=== PATIENT | female | born 1970 | race Caucasian/White ===

== ENCOUNTER 2022-09-24 15:56 | Emergency (ER) | payer MEDICARE, MEDICAID, SELFPAY ==
[2022-09-24 16:05] VITALS: BP 135/78; PULSE 50; RESP 18; TEMP 36.4; O2SAT 99; BMI 36.3
[2022-09-24] MEDS: tetanus-dipt-pertussis 0.5 mL SDV IM (16:24)
--- NOTE | 2022-09-24 16:33 | PC.NURSE ---
DR. ALEMAN CLOSED LACERATION WITH 3-0 NYLON. WOUND IRRIGATED PRIOR TO CLOSING. LACERATION KIT, 500ML NS, AND ONE SUTURE PACK USED.
--- NOTE | 2022-09-24 16:49 | W.ED.WOUNDLC ---
HPI - Wound/Laceration General: Chief Complaint: Wound/Laceration Stated Complaint: LACERATION TO KNEE Time Seen by Provider: 09/24/22 16:08 Source: patient Mode of arrival: EMS History of Present Illness: 52-year-old female presents emergency room she slipped and fell on her stairs at home landed on a rock. Has a 4 inch laceration horizontally across the patella. She denies any other injuries. She was able to walk and bear weight on fall. She is unsure of her last tetanus shot. Onset (ago): minute(s) Extremity Location: Right: knee Place: home Patient tetanus UTD: No Context: accidental Associated symptoms: Denies chills, fever(s), nausea or vomiting Review of Systems Const: Denies: fever(s), chills, body aches, change in appetite, fatigue or malaise ENMT: Denies: throat pain, ear or mastoid pain, nasal discharge or nasal congestion Card: Denies: chest pain, edema, dyspnea on exertion or orthopnea Resp: Denies: dyspnea, productive cough or non-productive cough GI: Denies: abdominal pain, nausea, vomiting, hematemesis, coffee ground emesis, diarrhea, constipation, bloating, hematochezia or melena : Denies: flank pain, difficulty voiding, dysuria, urinary frequency or urinary urgency Musc: Denies: neck pain or back pain Skin/Breast: Denies: rash or pruritus PFS ED PFSH: Medical History No significant medical problems Surgical History Hx of total knee arthroplasty Social History (Updated 10/07/22 @ 15:44 by Sergey Law DO) Smoking and tobacco status: never smoked Alcohol intake: never Physical Exam Const: GENERAL APPEARANCE: cooperative and comfortable ORIENTATION/CONSCIOUSNESS: Yes awake, Yes oriented to person, Yes oriented to place and Yes oriented to time HENMT: COMMON NORMALS: normocephalic, atraumatic and hearing grossly normal bilaterally HEAD & SCALP: normocephalic and atraumatic Resp: COMMON NORMALS: normal respiratory effort, No retractions, No use of accessory muscles and clear to auscultation bilaterally AUSCULTATION: clear to auscultation bilaterally Cardio: COMMON NORMALS: regular rate, regular rhythm and No murmurs present (Cardio) RATE: regular rate RHYTHM: regular rhythm GI: COMMON NORMALS: Soft to palpation and No hepatosplenomegaly present AUSCULTATION: Yes normoactive bowel sounds PALPATION: Yes Soft to palpation, No Tenderness to palpation present (GI), No Guarding due to palpation present (GI) and Yes No hepatosplenomegaly present Extremity: COMMON NORMALS: normal to inspection, capillary refill normal, no clubbing, cyanosis or edema, no calf tenderness and no pedal edema Neuro: SENSORIUM/ORIENTATION: Yes oriented to person, Yes oriented to place and Yes oriented to time Skin: COMMON NORMALS: no rashes or lesions noted GENERAL SKIN EXAM: no rashes or lesions noted Procedures Laceration Laceration 1: Site: lower extremity Side (If applicable): right (Knee) Size (cm): 10 Description: linear Depth: simple, single layer Local Anesthetic: lidocaine 1% and with epi Amount of anesthesia used (mL): 7 Pre-repair: wound explored and irrigated extensively Skin layer closed with: nylon Size (cm): 4-0 Number of sutures: 4 Technique: running (Locking) Course Vital Signs: Vital signs: Vital Signs Temperature 97.5 F L 09/24/22 16:05 Pulse Rate 50 L 09/24/22 16:05 Respiratory Rate 18 09/24/22 16:05 Blood Pressure 135/78 09/24/22 16:05 Pulse Oximetry 99 09/24/22 16:05 Oxygen Delivery Me thod 09/24/22 16:05 MDM - Wound/Laceration Medical Decision Making Laceration closed the aid of local anesthetic good approximation cosmesis and hemostasis of the wound edges wound care instructions given discharge home follow-up for suture removal in 7 to 10 days with her primary care doctor. X-ray showed no evidence of fracture. Medical Records I reviewed the patient's medical records. Lab Data Radiology Impressions Knee X-Ray 09/24/22 16:58 IMPRESSION: Right total knee replacement. Discharge Plan Discharge Patient Disposition: Home Clinical Impression: Laceration Condition: Stable Prescriptions: New mupirocin 2 % ointment 1 applic topical DAILY Qty: 15 0RF Discharge Orders: Discharge ED (Routine); Ordered 09/24/22 Ordered By: Sergey Law Referrals: Cyndee Jeffers DO [Primary Care Provider] - Discharge Diet: Usual diet Discharge Activity: Increase activity as tolerated Patient Instructions: Opioid Safety, Pain Management Activity Restrictions/Additional Instructions: You were seen today for laceration. Sutures should be removed in 10 to 14 days your primary care doctor can remove the sutures. Start antibiotics 1 pill 3 times a day for 5 days. Having problems follow-up with primary care doctor. Coding Level of Care Code ED Steel Floor Pan Placing Supervisor for Chg Fwd Exam Detailed
--- NOTE | 2022-09-24 16:58 | XRR_ITS ---
PROCEDURE INFORMATION: Exam: XR Right Knee Exam date and time: 09/24/2022 5:01 PM Age: 52 years old Clinical indication: Pain; Knee; Right; Prior surgery; Surgery date: 6+ months; Additional info: Fall TECHNIQUE: Imaging protocol: Radiologic exam of the Right knee. Views: 3 views. COMPARISON: No relevant prior studies available. FINDINGS: Bones/joints: Right total knee replacement. Soft tissues: Normal. XR/XR knee RT 3V* [id number] IMPRESSION: Right total knee replacement.
== END 2022-09-24 20:09 | disposition home or self-care (01) ==
PROVIDERS: Emergency Provider Family Medicine; PCP Family Medicine
DX: S81.011A Laceration without foreign body, right knee, initial encounter (principal); W01.198A Fall on same level from slipping, tripping and stumbling with subsequent striking against other object, initial encounter; Z23 Encounter for immunization
CPT/HCPCS: 12004; 73562; 90471; 90715; 99283

== ENCOUNTER → 2023-03-10 12:35 | Outpatient (BNVA) | payer MEDICARE, OTHER, SELFPAY | PROVIDERS: PCP Family Medicine; Visit Provider Family Medicine | DX: K91.2 Postsurgical malabsorption, not elsewhere classified (principal); D64.9 Anemia, unspecified | CPT/HCPCS: 80053; 80061; 82306; 82607; 82728; 83540; 84134; 84425; 84443; 84630; 85025 ==

== ENCOUNTER → 2023-03-24 18:40 | Outpatient (BNVA) | payer OTHER, SELFPAY | PROVIDERS: PCP Family Medicine; Visit Provider Psychiatry & Neurology Neurology | DX: F33.1 Major depressive disorder, recurrent, moderate (principal) | CPT/HCPCS: 83036 ==

== ENCOUNTER 2023-04-23 15:55 | Emergency (ER) | payer MEDICARE, MEDICAID, SELFPAY ==
[2023-04-21 13:17] VITALS: BP 94/69; BMI 33.1
[2023-04-23 15:56] VITALS: BMI 33.0
[2023-04-23 16:02] VITALS: BP 158/120; PULSE 86; RESP 16; TEMP 37.1; O2SAT 99
--- NOTE | 2023-04-23 16:02 | CTR_ITS ---
PROCEDURE INFORMATION: Exam: CT Abdomen And Pelvis With Contrast Exam date and time: 04/23/2023 4:31 PM Age: 52 years old Clinical indication: Abdominal pain; Generalized; Prior surgery; Surgery date: 6+ months; Surgery type: Gb, gastric bypass, btl; Additional info: Abd pain TECHNIQUE: Imaging protocol: Computed tomography of the abdomen and pelvis with contrast. Radiation optimization: All CT scans at this facility use at least one of these dose optimization techniques: automated exposure control; mA and/or kV adjustment per patient size (includes targeted exams where dose is matched to clinical indication); or iterative reconstruction. Contrast material: OMNI 350; Contrast volume: 100 ml; Contrast route: INTRAVENOUS (IV); REPORTING DATA: Count of CT and Cardiac NM exams in prior 12 months: This patient has received 0 known CTs and 0 known cardiac nuclear medicine studies in the 12 months prior to the current study. COMPARISON: CT abdomen pelvis w con* [id number] 10/08/2018 7:22 PM RADIATION DOSE METRICS: Total DLP (mGy-cm): 938.92 FINDINGS: Liver: Normal. No mass. Gallbladder and bile ducts: Cholecystectomy. No ductal dilation. Pancreas: Normal. No ductal dilation. Spleen: Normal. No splenomegaly. Adrenal glands: Normal. No mass. Kidneys and ureters: Normal. No hydronephrosis. Stomach and bowel: Sequela of Rebekah-en-Y gastric bypass. No obstruction. No mucosal thickening. Appendix: No evidence of appendicitis. Intraperitoneal space: Unremarkable. No free air. No significant fluid collection. Vasculature: Unremarkable. No abdominal aortic aneurysm. Lymph nodes: Unremarkable. No enlarged lymph nodes. Urinary bladder: Unremarkable as visualized. Reproductive: Unremarkable as visualized. Bones/joints: No acute fracture. Soft tissues: Unremarkable. CT/CT abdomen pelvis w con* [id number] IMPRESSION: No acute findings.
[2023-04-23 16:23] LABS: Basophils # 0.1 10^3/uL (0.0-0.1); Basophils % 1.5 %; Eosinophils # 0.1 10^3/uL (0.0-0.8); Eosinophils % 1.5 %; Hematocrit 42.4 % (37.0-47.0); Hemoglobin 12.7 g/dL (11.5-15.3); Lymphocytes # 1.4 10^3/uL (0.8-4.8); Lymphocytes % 33.3 %; Mean Corpuscular Hemoglobin 25.9 pg (28.0-34.0); Mean Corpuscular Volume 86.5 fl (81-99); Mean Platelet Volume 10.7 fL (7.4-10.4); Monocytes # 0.3 10^3/uL (0.2-0.9); Monocytes % 7.3 %; Neutrophils % 56.2 %; Nucleated Red Blood Cells % 0 %; Platelet Count 162 10^3/cmm (130-400); Red Cell Distribution Width 24.1 % (12.1-15.1); White Blood Count 4.1 10^3/uL (4.0-10.0)
--- NOTE | 2023-04-23 16:24 | W.ED.ABDPA2 ---
HPI - Abdominal Pain General: Chief Complaint: Abdominal Pain Stated Complaint: Abd pain Time Seen by Provider: 04/23/23 15:57 Source: patient and EMS Mode of arrival: EMS Limitations: no limitations History of Present Illness: 52-year-old female who states that she had nausea vomiting over the last 3 days. States not been able to tolerate any of her meds she had some slight dizziness she had abdominal cramping she denies any fevers EMS states she was bradycardic into the 50s I saw her EKG was sinus bradycardia she had no hypotensive but they did give her 1 mg of atropine. Associated Symptoms: Reports nausea and vomiting; Denies chills, diarrhea and fever(s) Review of Systems Const: Denies: fever(s), chills, body aches or change in appetite ENMT: Denies: throat pain or dental pain Card: Denies: chest pain Resp: Denies: dyspnea GI: Reports: abdominal pain, nausea and vomiting; Denies: diarrhea Musc: Denies: neck pain or back pain Skin/Breast: Denies: rash Neuro: Reports: dizziness; Denies: headache(s) PFSH ED PFSH: Medical History Chronic headaches Chronic pain Chronic prescription opiate use Generalized anxiety disorder History of blood transfusion History of DVT (deep vein thrombosis) provoked, post-surgical Postoperative malabsorption Psychiatric care PTSD (post-traumatic stress disorder) Surgical History History of abdominoplasty History of ankle surgery left, repair of tendon History of bilateral tubal ligation History of cholecystectomy History of laparoscopy History of Rebekah-en-Y gastric bypass History of total right knee replacement Family History Mother Cancer lung (smoker) Social History Smoking and tobacco status: never smoked Alcohol intake: never Substance/Drug Use: never Adopted: No Caregiver/support person: No Lives independently: Yes Household members: none Housing: Apartment Marital status: Number of children: 3 Number of grandchildren: 4 Highest education level completed: Some College, No Degree service: No Current occupational status: disabled Current occupational exposures/hazards: No Pets and animals: Yes Pets & animals: dog(s) Pets & animal details: widdle bit (akosua) Leisure activites: other Leisure activities details: play with dog, watch tv, knit and croucet Sexually active: No Do you think of yourself as: Straight/Heterosexual Current gender identity: Female Jennifer/Voodoo: Pentecostal Special jennifer needs: No Agree to transfusion: Yes Financial difficulty paying for basics: Not Very Hard Physical Exam Const: COMMON NORMALS: no acute distress, patient oriented x3 and healthy appearing HENMT: COMMON NORMALS: normocephalic and atraumatic HEAD & SCALP: normocephalic and atraumatic Eye: COMMON NORMALS: Equal, round and reactive pupils present and EOMs intact bilaterally PUPIL: Yes Equal, round and reactive pupils present Neck/C-Spine: COMMON NORMALS: full ROM and supple Chest: COMMONS NORMALS: normal inspection of the chest and normal palpation of entire chest wall Resp: COMMON NORMALS: normal respiratory effort, No retractions, No use of accessory muscles and clear to auscultation bilaterally AUSCULTATION: clear to auscultation bilaterally Cardio: COMMON NORMALS: regular rate, regular rhythm and No murmurs present (Cardio) RATE: regular rate RHYTHM: regular rhythm GI: COMMON NORMALS: Normal to inspection, nondistended, normoactive bowel sounds present, Soft to palpation, non-tender and no masses PALPATION: Yes Soft to palpation Extremity: COMMON NORMALS: normal to inspection and full ROM Neuro: COMMON NORMALS: patient oriented x3, moves all extremities and no focal motor deficits Psych: COMMON NORMALS: mental status grossly normal, Normal thought process present and cooperative THOUGHT PROCESS: Normal thought process present Skin: COMMON NORMALS: no rashes or lesions noted and no wounds GENERAL SKIN EXAM: no rashes or lesions noted Course Vital Signs: Vital signs: Vital Signs Temperature 98.8 F 04/23/23 16:02 Pulse Rate 68 04/23/23 18:20 Respiratory Rate 16 04/23/23 18:20 Blood Pressure 142/97 04/23/23 18:20 Pulse Oximetry 97 04/23/23 18:20 Oxygen Delivery Me thod Room Air 04/23/23 17:07 MDM - Abdominal Pain Medical Decision Making Patient presents here with abdominal pain and vomiting she feels much improved here she has been able to tolerate p.o. here CT scan blood work here all normal she is stable for discharge back home. Medical Records I reviewed the patient's medical records. Lab Data I reviewed the patient's lab results. 04/23/23 16:15 04/23/23 16:15 Labs/Radiology: Radiology Impressions Abdomen/Pelvis CT 04/23/23 16:02 IMPRESSION: No acute findings. Laboratory Results WBC 4.1 10^3/uL (4.0-10.0) 04/23/23 16:15 RBC 4.90 10^6/uL (4.1-5.3) 04/23/23 16:15 Hgb 12.7 g/dL (11.5-15.3) 04/23/23 16:15 Hct 42.4 % (37.0-47.0) 04/23/23 16:15 MCV 86.5 fl (81-99) 04/23/23 16:15 MCH 25.9 pg (28.0-34.0) L 04/23/23 16:15 MCHC 30.0 g/dL (30.0-36.0) 04/23/23 16:15 RDW 24.1 % (12.1-15.1) H 04/23/23 16:15 Plt Count 162 10^3/cmm (130-400) 04/23/23 16:15 MPV 10.7 fL (7.4-10.4) H 04/23/23 16:15 Neut % (Auto) 56.2 % 04/23/23 16:15 Lymph % (Auto) 33.3 % 04/23/23 16:15 Hemphill % (Auto) 7.3 % 04/23/23 16:15 Eos % (Auto) 1.5 % 04/23/23 16:15 Baso % (Auto) 1.5 % 04/23/23 16:15 Neut # (Auto) 2.30 10^3/uL (1.8-7.7) 04/23/23 16:15 Lymph # (Auto) 1.4 10^3/uL (0.8-4.8) 04/23/23 16:15 [place]ill # (Auto) 0.3 10^3/uL (0.2-0.9) 04/23/23 16:15 Eos # (Auto) 0.1 10^3/uL (0.0-0.8) 04/23/23 16:15 Baso # (Auto) 0.1 10^3/uL (0.0-0.1) 04/23/23 16:15 Nucleated RBC % (auto) 0 % 04/23/23 16:15 Nucleated RBCs # 0.0 /100WBC 04/23/23 16:15 Sodium 142 mmol/L (136-145) 04/23/23 16:15 Potassium 3.7 mmol/L (3.5-5.1) 04/23/23 16:15 Chloride 109 mmol/L (98-107) H 04/23/23 16:15 Carbon Dioxide 23 mmol/L (22-29) 04/23/23 16:15 Anion Gap 13.7 (5-19) 04/23/23 16:15 BUN 10 mg/dL (6-20) 04/23/23 16:15 Creatinine 0.6 mg/dL (0.5-0.9) 04/23/23 16:15 GFR Calculation 105.0 mL/min (90-130) 04/23/23 16:15 Glucose 93 mg/dL (65-115) 04/23/23 16:15 Calculated Osmolality 293 mOsm/kg (285-295) 04/23/23 16:15 Calcium 8.6 mg/dL (8.5-10.5) 04/23/23 16:15 Total Bilirubin 0.8 mg/dL (0.15-1.2) 04/23/23 16:15 AST 23 U/L (0-32) 04/23/23 16:15 ALT 24 U/L (0-33) 04/23/23 16:15 Alkaline Phosphatase 78 U/L (35-105) 04/23/23 16:15 Troponin T Baseline 6 ng/L (0-10) 04/23/23 16:15 Total Protein 5.9 g/dL (6.6-8.7) L 04/23/23 16:15 Albumin 3.5 g/dL (3.5-5.2) 04/23/23 16:15 Globulin 2.4 g/dL (1.3-4.6) 04/23/23 16:15 Lipase 53 U/L (13-60) 04/23/23 16:15 Discharge Plan Discharge Patient Disposition: Home Clinical Impression: Abdominal pain, Vomiting Condition: Stable Prescriptions: New ondansetron 4 mg tablet,disintegrating 4 mg PO Q6H PRN (Reason: nausea and vomiting) Qty: 14 0RF No Action esomeprazole magnesium 40 mg capsule,delayed release(DR/EC) 40 mg PO DAILY Qty: 90 3RF buspirone 15 mg tablet 15 mg PO TID Qty: 270 0RF venlafaxine 75 mg capsule,extended release 24hr 75 mg PO DAILY Qty: 90 0RF trazodone 50 mg tablet 50 mg PO DAILY Qty: 90 0RF clonidine HCl 0.2 mg tablet 0.2 mg PO .HS Qty: 90 0RF clonidine HCl 0.1 mg tablet 0.1 mg PO DAILY Qty: 90 0RF zonisamide 100 mg capsule 100 mg PO DAILY topiramate 200 mg tablet 200 mg PO BID levetiracetam 750 mg tablet 750 mg PO BID aspirin 81 mg tablet,delayed release (DR/EC) 81 mg PO DAILY tizanidine 2 mg tablet 2 mg PO Q8H PRN Ubrelvy 50 mg tablet PO hydromorphone 2 mg tablet 2 mg PO Q12H ferrous sulfate 325 mg (65 mg iron) tablet 325 mg PO BID Qty: 180 0RF epinephrine 0.3 mg/0.3 mL auto-injector 0.3 mg IM Q4H PRN (Reason: anaphylaxis) Qty: 2 0RF mupirocin 2 % ointment 1 applic topical DAILY Qty: 15 0RF Discharge Orders: Discharge ED (Routine); Ordered 04/23/23 Ordered By: Buster Ramsey Referrals: Paulette Garrison MD [Primary Care Provider] - Discharge Diet: Advance as tolerated Discharge Activity: Resume usual activity Patient Instructions: Acute Nausea and Vomiting (ED), Abdominal Pain (ED) Coding Level of Care Code ED Director Engineering for Jorge Bansal
[2023-04-23] MEDS: meclizine 25 mg tablet PO (16:53)
[2023-04-23 17:00] LABS: Alanine Aminotransferase 24 U/L (0-33); Albumin Level 3.5 g/dL (3.5-5.2); Alkaline Phosphatase 78 U/L (35-105); Aspartate Amino Transferase 23 U/L (0-32); Blood Urea Nitrogen 10 mg/dL (6-20); Calcium 8.6 mg/dL (8.5-10.5); Carbon Dioxide 23 mmol/L (22-29); Chloride 109 mmol/L (98-107); Globulin 2.4 g/dL (1.3-4.6); Glucose 93 mg/dL (65-115); Lipase 53 U/L (13-60); Osmolality Calculated 293 mOsm/kg (285-295); Sodium 142 mmol/L (136-145); Total Bilirubin 0.8 mg/dL (0.15-1.2); Total Protein 5.9 g/dL (6.6-8.7); Troponin(5th) Baseline 6 ng/L (0-10)
[2023-04-23 17:01] VITALS: RESP 17; O2SAT 96
[2023-04-23] MEDS: morphine 4 mg/mL SDV 1 mL IVP (17:01)
[2023-04-23 17:06] LABS: Anion Gap 13.7 (5-19); Potassium 3.7 mmol/L (3.5-5.1)
[2023-04-23 17:07] VITALS: BP 130/95; PULSE 65; RESP 17; O2SAT 95
--- NOTE | 2023-04-23 17:22 | ECG_ITS ---
[facility] Test Date: 2023-04-23 Pat Name: Flaquita Carr Department: Room: Gender: Female Freelance Director: : 1970 Requested By: Buster Ramsey Order Number: [id number] Crow MD: Princess Mcleod M.D. Measurements Intervals [place] Rate: 57 P: -4 [place]: 132 QRS: -10 QRSD: 98 T: 30 QT: 399 QTc: 389 Interpretive Statements SINUS BRADYCARDIA POSSIBLE ANTERIOR MYOCARDIAL INFARCTION , PROBABLY OLD [30 ms Q WAVE IN V3/V4, OR R < 0.2 mV IN V4] Compared to ECG 05/21/2019 20:58:20 Myocardial infarct finding now present Electronically Signed On 04-23-2023 18:45:34 CDT by Princess Mcleod M.D. [id number]
[2023-04-23 18:20] VITALS: BP 142/97; PULSE 68; RESP 16; O2SAT 97
== END 2023-04-23 19:43 | disposition home or self-care (01) ==
PROVIDERS: Emergency Provider Emergency Medicine; PCP Family Medicine
DX: R10.9 Unspecified abdominal pain (principal); R11.10 Vomiting, unspecified
CPT/HCPCS: 74177; 80053; 83690; 84484; 85025; 93005; 96374; 99285; J2270; J8597; Q9967

== ENCOUNTER 2023-08-12 22:00 | Emergency (ER) | payer MEDICARE, MEDICAID, SELFPAY ==
[2023-04-21 13:17] VITALS: BP 94/69; BMI 33.1
[2023-08-12 22:00] VITALS: BMI 33.0
--- NOTE | 2023-08-12 22:01 | ED_ITS ---
HPI - Skin/Abscess/Foreign Bdy General: Chief complaint: Skin/Abscess/Foreign Body Stated complaint: spider bite Time Seen by Provider: 08/12/23 22:01 History of Present Illness: 53-year-old female comes in today for co ncerns of possible spider bite. Patient felt a sting to her left hip area and reported the found a spider that was brown in color. Patient said that she has had a reaction to spider bites before. Patient appears nontoxic. Patient appears in no acute distress. Patient has a history of traumatic brain injury, and hypertension, chronic opioid use, and mental health disorder. Associated symptoms: Deny fever(s), nausea or vomiting Review of Systems General: Reports: 10 or more systems reviewed and unremarkable except in HPI and below Const: Denies: fever(s) Card: Denies: chest pain Resp: Denies: dyspnea GI: Denies: nausea, vomiting, diarrhea or constipation : Denies: difficulty voiding Musc: Denies: neck pain or back pain Skin/Breast: Reports: new lesions [facility] ED PFSH: Medical History Chronic headaches Chronic pain Chronic prescription opiate use Generalized anxiety disorder History of blood transfusion History of DVT (deep vein thrombosis) provoked, post-surgical Postoperative malabsorption Psychiatric care PTSD (post-traumatic stress disorder) Surgical History History of abdominoplasty History of ankle surgery left, repair of tendon History of bilateral tubal ligation History of cholecystectomy History of laparoscopy History of Rebekah-en-Y gastric bypass History of total right knee replacement Family History Mother Cancer lung (smoker) Social History Smoking and tobacco/nicotine status: never used tobacco/nicotine Alcohol intake: never Substance/Drug Use: never Adopted: No Caregiver/support person: No Lives independently: Yes Household members: none Housing: Apartment Marital status: Number of children: 3 Number of grandchildren: 4 Highest education level completed: Some College, No Degree service: No Current occupational status: disabled Current occupational exposures/hazards: No Pets and animals: Yes Pets & animals: dog(s) Pets & animal details: widdle bit (akosua) Leisure activites: other Leisure activities details: play with dog, watch tv, knit and croucet Sexually active: No Do you think of yourself as: Straight/Heterosexual Current gender identity: Female Jennifer/Latter Day: Christianity Special jennifer needs: No Agree to transfusion: Yes Physical Exam Const: COMMON NORMALS: alert HENMT: COMMON NORMALS: normocephalic HEAD & SCALP: normocephalic Neck/C-Spine: COMMON NORMALS: full ROM Resp: COMMON NORMALS: normal respiratory effort and clear to auscultation bilaterally AUSCULTATION: clear to auscultation bilaterally Cardio: COMMON NORMALS: regular rate and regular rhythm RATE: regular rate RHYTHM: regular rhythm GI: COMMON NORMALS: Soft to palpation and non-tender PALPATION: Yes Soft to palpation Back/Pelvis: COMMON NORMALS: thoracic and lumbar spine normal to inspection Extremity: COMMON NORMALS: normal to inspection Neuro: SENSORIUM/ORIENTATION: Yes alert Skin: COMMON NORMALS: turgor normal GENERAL SKIN EXAM: turgor normal LES IONS: no lesions Course Vital Signs: Vital signs: Vital Signs Temperature 98.3 F 08/12/23 22:04 Pulse Rate 53 L 08/12/23 22:04 Respiratory Rate 16 08/12/23 22:04 Blood Pressure 177/92 08/12/23 22:04 Pulse Oximetry 98 08/12/23 22:04 MDM - Skin/Abscess/Foreign Bdy Medicial Decision Making 53-year-old female comes in today for complaints of spider bite to the left thigh. On exam no visible markings or injuries are noted. Patient appears nontoxic. Patient appears in no acute distress. Lungs are clear to auscultation. Heart rates regular. Vital signs are normal except for some mild bradycardia in the 50s, and slightly elevated blood pressure. Differential diagnosis includes neuropathy, anxiety, insect bite. I believe the patient had a sensation that she mistook as a spider bite but no visible injury is noted. Patient was monitored for deterioration and no abnormalities were noted. Patient was discharged home for follow-up with primary care for recheck of area or return to ER for new concerns. Patient was stable and discharged home. No radiology studies performed this visit Discharge Plan Discharge Patient Disposition: Home Clinical Impression: Insect bite Qualifiers: Encounter type: initial encounter Site of insect bite: thigh Laterality: left Qualified Code(s): S70.362A - Insect bite (nonvenomous), left thigh, initial encounter Condition: Stable Prescriptions: No Action esomeprazole magnesium 40 mg capsule,delayed release(DR/EC) 40 mg PO DAILY Qty: 90 3RF propranolol 20 mg tablet 20 mg PO BID PRN (Reason: anxiety) Qty: 180 0RF buspirone 15 mg tablet 15 mg PO TID Qty: 270 0RF clonidine HCl 0.2 mg tablet 0.2 mg PO .HS Qty: 90 0RF clonidine HCl 0.1 mg tablet 0.1 mg PO DAILY Qty: 90 0RF trazodone 50 mg tablet 50 mg PO DAILY Qty: 90 0RF venlafaxine 75 mg capsule,extended release 24hr 75 mg PO DAILY Qty: 90 0RF zonisamide 100 mg capsule 100 mg PO DAILY topiramate 200 mg tablet 200 mg PO BID levetiracetam 750 mg tablet 750 mg PO BID aspirin 81 mg tablet,delayed release (DR/EC) 81 mg PO DAILY tizanidine 2 mg tablet 2 mg PO Q8H PRN Ubrelvy 50 mg tablet PO hydromorphone 2 mg tablet 2 mg PO Q12H ondansetron 4 mg tablet,disintegrating 4 mg PO Q6H PRN (Reason: nausea and vomiting) Qty: 14 0RF epinephrine 0.3 mg/0.3 mL auto-injector 0.3 mg IM Q4H PRN (Reason: anaphylaxis) Qty: 2 0RF ferrous sulfate [FeroSul] 325 mg (65 mg iron) tablet See Rx Instructions .ROUTE .COMPLEX Qty: 180 0RF Dose Instruction: TAKE 1 TABLET TWICE DAILY Rx Instructions: TAKE 1 TABLET TWICE DAILY Discharge Orders: Discharge ED (Routine); Ordered 08/12/23 Ordered By: Yordan Lee Referrals: Paulette Garrison MD [Primary Care Provider] - Discharge Diet: Usual diet Discharge Activity: Increase activity as tolerated Patient Instructions: Insect Bite or Sting (ED) Activity Restrictions/Additional Instructions: Monitor site for signs of infection. This includes fever, increasing redness and thickening of the skin, increasing pain. Follow-up with primary care. Return to ED for new concerns. Coding Level of Care Code ED Chemistry Manager for Jorge Bansal
[2023-08-12 22:04] VITALS: BP 177/92; PULSE 53; RESP 16; TEMP 36.8; O2SAT 98
[2023-08-12 23:00] VITALS: BP 107/63; PULSE 55; O2SAT 98
== END 2023-08-12 23:03 | disposition home or self-care (01) ==
PROVIDERS: Emergency Provider Nurse Practitioner Family; PCP Family Medicine
DX: S70.362A Insect bite (nonvenomous), left thigh, initial encounter (principal); W57.XXXA Bitten or stung by nonvenomous insect and other nonvenomous arthropods, initial encounter; Z79.82 Long term (current) use of aspirin
CPT/HCPCS: 99281

== ENCOUNTER → 2023-08-23 07:53 | Outpatient (BNVA) | payer MEDICARE, MEDICAID, SELFPAY ==
[2023-04-21 13:17] VITALS: BP 94/69; BMI 33.1
== END ==
PROVIDERS: PCP Family Medicine; Referring Provider Family Medicine; Visit Provider Surgery
DX: R13.10 Dysphagia, unspecified (principal)
CPT/HCPCS: 99204

== ENCOUNTER → 2023-11-15 11:39 | Outpatient (BNVA) | payer MEDICARE, MEDICAID, SELFPAY ==
[2023-04-21 13:17] VITALS: BP 94/69; BMI 33.1
== END ==
PROVIDERS: PCP Family Medicine; Visit Provider Emergency Medicine
DX: N39.0 Urinary tract infection, site not specified (principal)
CPT/HCPCS: 81000; 87077; 87086; 87184

== ENCOUNTER → 2023-11-22 11:43 | Outpatient (BNVA) | payer MEDICARE, MEDICAID, SELFPAY ==
[2023-04-21 13:17] VITALS: BP 94/69; BMI 33.1
== END ==
PROVIDERS: PCP Family Medicine; Visit Provider Nurse Practitioner
DX: N39.0 Urinary tract infection, site not specified (principal)
CPT/HCPCS: 81000; 87086

== ENCOUNTER 2023-12-11 12:57 | Emergency (ER) | payer MEDICARE, MEDICAID, SELFPAY ==
[2023-04-21 13:17] VITALS: BP 94/69; BMI 33.1
[2023-12-11 13:06] VITALS: BP 114/82; PULSE 66; RESP 17; TEMP 36.9; O2SAT 96; BMI 33.7
--- NOTE | 2023-12-11 14:22 | XRR_ITS ---
PROCEDURE INFORMATION: Exam: XR Chest Exam date and time: 12/11/2023 3:05 PM Age: 53 years old Clinical indication: Cough and fever and shortness of breath; Patient HX: SOB; Fever; Headache; Cough TECHNIQUE: Imaging protocol: Radiologic exam of the chest. Views: 1 view. COMPARISON: CR XR chest 1V [id number] 04/17/2019 2:37 PM FINDINGS: Lungs: Unremarkable. No consolidation. Pleural spaces: Unremarkable. No pleural effusion. No pneumothorax. Heart/Mediastinum: Unremarkable. No cardiomegaly. Bones/joints: Unremarkable. XR/XR chest 1V portable [id number] IMPRESSION: No acute findings.
--- NOTE | 2023-12-11 14:28 | ED_ITS ---
HPI - URI/Sore Throat 2 General: Chief Complaint: Upper Respiratory Infection Stated Complaint: HEADACHE Time Seen by Provider: 12/11/23 14:11 History of Present Illness: The patient reports feeling unwell since the removal of their last seven upper teeth a week ago , noting that the roots extended into the sinus cavity. Following this procedure, the patient developed a cold at the beginning of the week, experiencing significant sinus pressure, particularly in the cheek area, and has had a fever reaching up to 103 degrees Fahrenheit. The patient has been managing the fever with alternating doses of ibuprofen and Tylenol. Despite efforts to prevent it, mucus drains down the throat during sleep, leading to coughing. The patient expresses concern about managing their medication schedule due to being on numerous medications and fears having a seizure because of a pre-existing brain tumor and traumatic brain injury (TBI). Additionally, the patient mentions a lack of appetite and hydration, experiencing cold chills, and confirms the persistence of fever symptoms for approximately five days. The patient also shares a reluctance to receive the flu vaccine, attributing past instances of flu to the vaccination. Review of Systems 2 General: Reports: 10 or more systems reviewed and unremarkable except in HPI and below PFSH ED 2 PFSH: Medical History Chronic prescription opiate use Chronic pain Chronic headaches Postoperative malabsorption History of DVT (deep vein thrombosis) provoked, post-surgical History of blood transfusion Generalized anxiety disorder PTSD (post-traumatic stress disorder) Psychiatric care Surgical History History of abdominoplasty History of laparoscopy History of bilateral tubal ligation History of ankle surgery left, repair of tendon History of Rebekah-en-Y gastric bypass History of cholecystectomy History of total right knee replacement Family History Mother Cancer lung (smoker) Social History Smoking and tobacco/nicotine status: never used tobacco/nicotine Alcohol intake: never Substance/Drug Use: never Adopted: No Caregiver/support person: No Lives independently: Yes Household members: none Housing: Apartment Marital status: Number of children: 3 Number of grandchildren: 4 Highest education level completed: Some College, No Degree service: No Current occupational status: disabled Current occupational exposures/hazards: No Pets and animals: Yes Pets & animals: dog(s) Pets & animal details: widdle bit (akosua) Leisure activites: other Leisure activities details: play with dog, watch tv, knit and croucet Sexually active: No Do you think of yourself as: Straight/Heterosexual Current gender identity: Female Jennifer/Pentecostal: Orthodox Special jennifer needs: No Agree to transfusion: Yes Physical Exam 2 Const: COMMON NORMALS: no acute distress, patient oriented x3, healthy appearing, alert and well nourished HENMT: COMMON NORMALS: normocephalic HEAD & SCALP: normocephalic Eye: COMMON NORMALS: EOMs intact bilaterally Neck/C-Spine: COMMON NORMALS: full ROM and supple Resp: COMMON NORMALS: normal respiratory effort, No retractions and clear to auscultation bilaterally AUSCULTATION: clear to auscultation bilaterally Cardio: COMMON NORMALS: regular rate, regular rhythm, No gallops present (Cardio) and No murmurs present (Cardio) RATE: regular rate RHYTHM: r egular rhythm GI: COMMON NORMALS: Soft to palpation and non-tender PALPATION: Yes Soft to palpation Extremity: GENERAL: Yes normal exam except as noted Neuro: COMMON NORMALS: patient oriented x3 SENSORIUM/ORIENTATION: Yes alert Skin: COMMON NORMALS: no rashes or lesions noted GENERAL SKIN EXAM: no rashes or lesions noted Course 2 Vital Signs: Vital signs: Vital Signs Temperature 98.4 F 12/11/23 13:06 Pulse Rate 66 12/11/23 13:06 Respiratory Rate 17 12/11/23 13:06 Blood Pressure 114/82 12/11/23 13:06 Pulse Oximetry 96 12/11/23 13:06 Oxygen Delivery Me thod Room Air 12/11/23 13:06 MDM - URI/Sore Throat Medical Decision Making 53-year-old female presents emergency department for evaluation of sinus congestion and head pain for the past 4 days. Patient's laboratory evaluation is globally normal. Patient likely has acute bacterial sinusitis. She does have fairly significant leukopenia with neutropenia. Encourage patient to follow-up with her primary care physician to further workup this finding. Patient discharged home in improved condition. Return precautions discussed. Differential Diagnosis Likely upper respiratory infection, sinusitis and viral infection Lab Data 12/11/23 14:29 12/11/23 14:29 Radiology Impressions Chest X-Ray 12/11/23 14: IMPRESSION: No acute findings. Laboratory Results WBC 2.55 10^3/uL (3.29-11.43) L 12/11/23 14:29 RBC 5.10 10^6/uL (3.85-5.65) 12/11/23 14:29 Hgb 15.20 g/dL (11.27-16.99) 12/11/23 14:29 Hct 48.6 % (36-47) H 12/11/23 14:29 MCV 95.3 fl (85-98) 12/11/23 14:29 MCH 29.8 pg (27-33) 12/11/23 14:29 MCHC 31.3 g/dL (30-55) 12/11/23 14:29 RDW 13.3 % (12.1-15.1) 12/11/23 14:29 Plt Count 154 10^3/cmm (157-399) L 12/11/23 14:29 MPV 10.4 fL (7.4-10.4) 12/11/23 14:29 Neut % (Auto) 56.0 % 12/11/23 14:29 Lymph % (Auto) 31.0 % 12/11/23 14:29 [place] % (Auto) 10.2 % 12/11/23 14:29 Eos % (Auto) 1.2 % 12/11/23 14:29 Baso % (Auto) 1.2 % 12/11/23 14:29 Neut # (Auto) 1.43 10^3/uL (1.8-7.7) L 12/11/23 14:29 Lymph # (Auto) 0.8 10^3/uL (0.8-4.8) 12/11/23 14:29 [place] # (Auto) 0.3 10^3/uL (0.2-0.9) 12/11/23 14:29 Eos # (Auto) 0.0 10^3/uL (0.0-0.8) 12/11/23 14:29 Baso # (Auto) 0.0 10^3/uL (0.0-0.1) 12/11/23 14:29 Nucleated RBC % (auto) 0 % 12/11/23 14:29 Nucleated RBCs # 0.0 /100WBC 12/11/23 14:29 Sodium 142 mmol/L (136-145) 12/11/23 14:29 Potassium 3.3 mmol/L (3.5-5.1) L 12/11/23 14:29 Chloride 112 mmol/L (98-107) H 12/11/23 14:29 Carbon Dioxide 19 mmol/L (22-29) L 12/11/23 14:29 Anion Gap 14.3 (5-19) 12/11/23 14:29 BUN 5 mg/dL (6-20) L 12/11/23 14:29 Creatinine 0.7 mg/dL (0.5-0.9) 12/11/23 14:29 GFR Calculation 87.5 mL/min (90-130) L 12/11/23 14:29 Glucose 105 mg/dL (65-115) 12/11/23 14:29 Calculated Osmolality 292 mOsm/kg (285-295) 12/11/23 14:29 Lactic Acid 1.1 mmol/L (0.5-2.2) 12/11/23 14:29 Calcium 8.5 mg/dL (8.5-10.5) 12/11/23 14:29 Total Bilirubin 0.9 mg/dL (0.15-1.2) 12/11/23 14:29 AST 27 U/L (0-32) 12/11/23 14:29 ALT 20 U/L (0-33) 12/11/23 14:29 Alkaline Phosphatase 91 U/L (35-105) 12/11/23 14:29 Total Protein 6.5 g/dL (6.6-8.7) L 12/11/23 14:29 Albumin 3.6 g/dL (3.5-5.2) 12/11/23 14:29 Globulin 2.9 g/dL (1.3-4.6) 12/11/23 14:29 Influenza Type A Ag negative (Negative) 12/11/23 14:44 Influenza Type B Ag negative (Negative) 12/11/23 14:44 SARS-CoV-2 Ag (Rapid) negative (Negative) 12/11/23 14:44 All radiology interpretation(s) finalized by discharge Discharge Plan Discharge Patient Disposition: Home Clinical Impression: Sinusitis Qualifiers: Sinusitis location: maxillary Chronicity: acute Recurrence: non-recurrent Q ualified Code(s): J01.00 - Acute maxillary sinusitis, unspecified Leukopenia Qualifiers: Leukopenia type: unspecified Qualified Code(s): D72.819 - Decreased white blood cell count, unspecified Condition: Stable Prescriptions: New amoxicillin 875 mg tablet 875 mg PO BID Qty: 20 0RF No Action esomeprazole magnesium 40 mg capsule,delayed release(DR/EC) 40 mg PO DAILY Qty: 90 3RF cholecalciferol (vitamin D3) 25 mcg (1,000 unit) capsule 25 mcg PO DAILY biotin 1,000 mcg tablet,chewable 1,000 mcg PO DAILY mecobalamin (vitamin B12) 500 mcg tablet,chewable 500 mcg PO DAILY ascorbate calcium (vitamin C) 500 mg tablet 500 mg PO DAILY multivitamin Tablet 1 tab PO DAILY venlafaxine 75 mg capsule,extended release 24hr 75 mg PO DAILY Qty: 90 0RF buspirone 15 mg tablet 15 mg PO TID Qty: 270 0RF levetiracetam 750 mg tablet 750 mg PO BID Qty: 180 3RF topiramate 200 mg tablet 200 mg PO BID aspirin 81 mg tablet,delayed release (DR/EC) 81 mg PO DAILY Ubrelvy 50 mg tablet 50 mg PO DAILY PRN (Reason: Headache) epinephrine 0.3 mg/0.3 mL auto-injector 0.3 mg IM Q4H PRN (Reason: anaphylaxis) Qty: 2 0RF propranolol 20 mg tablet 20 mg PO BID PRN (Reason: anxiety) Qty: 180 0RF zonisamide 100 mg capsule 100 mg PO DAILY Qty: 90 2RF tizanidine 4 mg tablet 2 mg PO BID Glucosamine 500 mg Tablet 500 mg PO DAILY Rx Instructions: administer with a meal hydromorphone 4 mg tablet 4 mg PO BID PRN (Reason: Pain) cranberry 500 mg Capsule 500 mg PO DAILY Rx Instructions: administer with meals [place] wort 300 mg Capsule 300 mg PO DAILY Calcium 600 + D(3) 600 mg-10 mcg (400 unit) Tablet 1 tab PO DAILY vitamin [id number] acid 500-400 mcg Tablet 1 tab PO DAILY Rx Instructions: administer with a meal clonidine HCl 0.1 mg tablet 0.1 mg PO QAM trazodone 50 mg tablet 50 mg PO BEDTIME clonidine HCl 0.2 mg tablet 0.2 mg PO BEDTIME FeroSul 325 mg (65 mg iron) tablet 325 mg PO BID Discharge Orders: Discharge ED (Routine); Ordered 12/11/23 Ordered By: Dawson Law Referrals: Helen Hatch FNP [Primary Care Provider] - Discharge Diet: Advance as tolerated Discharge Activity: Increase activity as tolerated Patient Instructions: Opioid Safety, Pain Management, Sinusitis - Acute Activity Restrictions/Additional Instructions: Follow-up with your primary care doctor for repeat CBC. Your white blood cell count was low at today's visit. Coding Level of Care Code ED Machine Grainer for Jorge Bansal
[2023-12-11 14:53] LABS: Basophils % 1.2 %; Eosinophils % 1.2 %; Hematocrit 48.6 % (36-47); Lymphocytes # 0.8 10^3/uL (0.8-4.8); Mean Corpuscular HGB Conc 31.3 g/dL (30-55); Mean Corpuscular Hemoglobin 29.8 pg (27-33); Mean Corpuscular Volume 95.3 fl (85-98); Mean Platelet Volume 10.4 fL (7.4-10.4); Monocytes # 0.3 10^3/uL (0.2-0.9); Monocytes % 10.2 %; Neutrophils # 1.43 10^3/uL (1.8-7.7); Nucleated Red Blood Cells % 0 %; Platelet Count 154 10^3/cmm (157-399); Red Cell Distribution Width 13.3 % (12.1-15.1); White Blood Count 2.55 10^3/uL (3.29-11.43)
[2023-12-11 15:11] LABS: Influenza A by IFA negative (Negative); Influenza B by IFA negative (Negative); SARS Covid-2 Antigen negative (Negative)
[2023-12-11 15:14] LABS: Alanine Aminotransferase 20 U/L (0-33); Albumin Level 3.6 g/dL (3.5-5.2); Alkaline Phosphatase 91 U/L (35-105); Anion Gap 14.3 (5-19); Aspartate Amino Transferase 27 U/L (0-32); Blood Urea Nitrogen 5 mg/dL (6-20); Calcium 8.5 mg/dL (8.5-10.5); Carbon Dioxide 19 mmol/L (22-29); Chloride 112 mmol/L (98-107); Creatinine Clr Calc Pharmacy 107.8443; Globulin 2.9 g/dL (1.3-4.6); Glomerular Filtration Rate 87.5 mL/min (90-130); Glucose 105 mg/dL (65-115); Osmolality Calculated 292 mOsm/kg (285-295); Potassium 3.3 mmol/L (3.5-5.1); Sodium 142 mmol/L (136-145); Total Bilirubin 0.9 mg/dL (0.15-1.2); Total Protein 6.5 g/dL (6.6-8.7)
[2023-12-11 15:25] LABS: Lactic Sepsis W/Reflex 1.1 mmol/L (0.5-2.2)
== END 2023-12-11 16:05 | disposition home or self-care (01) ==
PROVIDERS: Emergency Provider General Practice; PCP Nurse Practitioner
DX: J01.00 Acute maxillary sinusitis, unspecified (principal); D72.819 Decreased white blood cell count, unspecified; Z79.82 Long term (current) use of aspirin; Z11.52 Encounter for screening for COVID-19
CPT/HCPCS: 36415; 71045; 80053; 83605; 85025; 87426; 87804; 99284

== ENCOUNTER 2024-01-11 11:25 | Outpatient (CLI) | payer MEDICARE, MEDICAID, SELFPAY ==
[2023-04-21 13:17] VITALS: BP 94/69; BMI 33.1
--- NOTE | 2024-01-11 11:30 | MM_ITS ---
WS: [id number] BILATERAL 3D TOMOSYNTHESIS DIGITAL SCREENING MAMMOGRAPHY WITH CAD CLINICAL INFORMATION: SCREENING HISTORY: Screening mammogram. No current complaints. COMPARISON: 2020 TECHNIQUE: Bilateral CC and MLO views. FINDINGS: Scattered fibroglandular densities bilaterally. No suspicious focal mass, asymmetry, calcifications, or architectural distortion. No evidence of malignancy. Few incidental punctate calcifications. MM/[place] [id number] IMPRESSION: BI-RADS: 2-Benign FOLLOW UP: 1 Year Follow-up Recommend return to annual screening mammography.
== END 2024-01-11 11:26 | disposition home or self-care (01) ==
LOC: MOBLMAM 11:34
PROVIDERS: PCP Nurse Practitioner; Visit Provider Nurse Practitioner
DX: Z12.31 Encounter for screening mammogram for malignant neoplasm of breast (principal); R92.323 Mammographic fibroglandular density, bilateral breasts
CPT/HCPCS: 77063; 77067